=== PATIENT | male | born 1985 | race Caucasian/White ===

== ENCOUNTER 2020-12-06 11:50 | Outpatient (REF) | payer MEDICAID, SELFPAY ==
--- NOTE | ~2020-12-06 | XR_ITS ---
EXAMINATION: XR ANKLE, RIGHT CLINICAL INFORMATION: Pain COMPARISON: None TECHNIQUE: AP, lateral, and mortise views of the right ankle. FINDINGS: The bones and soft tissues are normal. No fracture. Alignment is anatomic. Joint spaces are maintained. No joint effusion. XR/XR ankle RT min 3V IMPRESSION: Normal right ankle.
== END 2020-12-06 11:51 | disposition home or self-care (01) ==
LOC: HO.XRAY 11:50
PROVIDERS: PCP Internal Medicine; Visit Provider Nurse Practitioner
DX: M25.571 Pain in right ankle and joints of right foot (principal)
CPT/HCPCS: 73610

== ENCOUNTER 2021-02-28 12:33 | Outpatient (REF) | payer MEDICAID, SELFPAY ==
--- NOTE | ~2021-02-28 | XR_ITS ---
EXAMINATION: XR KNEE, LEFT CLINICAL INFORMATION: Left posterior knee pain. COMPARISON: None TECHNIQUE: AP, lateral, tunnel and sunrise views of the left knee. FINDINGS: Bones and soft tissues are normal. No fracture or joint effusion. Alignment is anatomic. Joint spaces are well maintained. No abnormal soft tissue calcification. XR/XR knee LT 4V IMPRESSION: Normal left knee.
== END 2021-02-28 12:34 | disposition home or self-care (01) ==
LOC: HO.XRAY 12:33
PROVIDERS: Visit Provider General Practice
DX: M25.562 Pain in left knee (principal)
CPT/HCPCS: 73564

== ENCOUNTER 2021-07-21 09:27 | Emergency (ER) | payer MEDICAID, SELFPAY ==
[2021-07-21 09:42] VITALS: BP 140/84; PULSE 74; RESP 18; TEMP 36.4; O2SAT 100; BMI 26.1
--- NOTE | 2021-07-21 09:54 | ED_ITS ---
HPI - Eye Problem General Chief complaint: Eye Problems Stated complaint: eye issue Time Seen by Provider: 07/21/21 09:50 Source: patient Mode of arrival: ambulatory Limitations: no limitations History of Present Illness chief complaint: eye pain and eye redness Onset (ago): day(s) Onset description: gradual Duration: constant Location: right eye Eye Symptoms: redness and pain Place: home Mechanism: none Severity: moderate If Pain, Quality: aching Context: other (stye that he likely rubbed) Associated symptoms: other (area around eye became reddened) Treatments Prior to Arrival: none Related Data Previous Rx's Medication Instructions Recorded cephalexin 500 mg tablet 500 mg PO TID 7 Days #21 tab 07/21/21 Allergies Allergy/AdvReac Type Severity Reaction Status Date / Time No Known Allergies Allergy Verified 07/21/21 09:41 Review of Systems Review of Systems: Constitutional : No Fever, No Chills ENT/Mouth : No sore throat, No Rhinorrhea Eyes: pos Eye Pain, pos Swelling, pos Redness Cardiovascular : No Chest Pain, No SOB Respiratory : No Cough, No Sputum Gastrointestinal : No Nausea, No Vomiting, No Diarrhea, No abdominal Pain Genitourinary : No Dysuria, No Hematuria Musculoskeletal : No joint pain, No Myalgias, No Joint Swelling Skin : No Skin Lesions, positive skin rash Neuro : No Weakness, No Numbness, No Headache PMFSH Past Medical History Medical History (Updated 07/21/21 @ 09:59 by Constanza Hensley DO) No known health problems Social History Social History Advance Directives: No Advance Directives Information Provided: Yes Physical Exam Vital Signs: Vital Signs: Last Vital Signs Temp 97.5 F 07/21/21 09:42 Pulse 74 07/21/21 09:42 Resp 18 07/21/21 09:42 BP 140/84 H 07/21/21 09:42 Pulse Ox 100 07/21/21 09:42 BMI result Body Mass Index 26.1 Appearance: Alert. Oriented X3. No acute distress. Eyes: Pupils equal, round and reactive to light. R eye medial aspect internal stye noted but under eyelid is red and swollen no pain with EOMi ENT: Pharynx normal. Neck: Normal inspection. Neck supple. CVS: Normal heart rate and rhythm. Respiratory: No respiratory distress. Breath sounds normal. Abdomen: Atraumatic. Skin: Skin warm and dry. Normal skin color. Extremities: No lower extremity edema. Neuro: Oriented X 3. No motor deficit. No sensory deficit. MDM - Eye Problem MDM Narrative Medical decision making narrative: 35 yo male otherwise healthy no contact lens wear no vision changes stye but likely periorbital cellulitis no pain with orbital cellulitis - start on cephalexin and warm compresses. Discharge Plan Discharge Clinical Impression: Periorbital cellulitis, Hordeolum Patient Disposition: Home, Self-Care Instructions: Stjose eduardo (ED), Periorbital Cellulitis in Adults (ED) Additional Instructions: return to ED for any worsening symptoms or concerns warm compressed 4 times a day Prescriptions: New cephalexin 500 mg tablet 500 mg PO TID 7 Days Qty: 21 0RF Referrals: Edenilson Asencio [Physician] - 5 days (if not better) Print Language: Citizen Of [place]
== END 2021-07-21 10:04 | disposition home or self-care (01) ==
PROVIDERS: Emergency Provider Emergency Medicine; PCP Internal Medicine
DX: L03.213 Periorbital cellulitis (principal); H00.013 Hordeolum externum right eye, unspecified eyelid; Z79.899 Other long term (current) drug therapy
CPT/HCPCS: 99283

== ENCOUNTER 2023-10-13 08:48 | Outpatient (REF) | payer MEDICAID, SELFPAY ==
[2023-10-13 11:29] LABS: MANUAL DIFF FLAG NO
[2023-10-13 11:41] LABS: Basophils Percent Auto 0.4 % (0-2); Eosinophils Absolute Auto 0.1 X10*3/uL (0.0-0.4); Eosinophils Percent Auto 2.7 % (0-4); Hematocrit 46.1 % (42.0-52.0); Hemoglobin 15.3 g/dl (14.0-18.0); Imm Gran Abs Auto 0.01 X10*3/uL (0.00-0.03); Imm Gran Pct Auto 0.2 % (0.0-0.4); Lymphocytes Absolute Auto 1.9 X10*3/uL (1.2-4.9); Lymphocytes Percent Auto 38.4 % (20-40); Mean Corpuscular HGB Conc 33.2 g/dl (31.0-36.0); Mean Corpuscular Hemoglobin 29.9 pg (27.0-33.0); Mean Corpuscular Volume 90.2 fL (80.0-98.0); Mean Platelet Volume 9.6 fL (9.4-12.4); Monocytes Absolute Auto 0.3 X10*3/uL (0.1-1.2); Monocytes Percent Auto 6.6 % (2-11); Neutrophils Absolute Auto 2.5 x10*3/uL (2.0-8.3); Neutrophils Percent Auto 51.7 % (45-73); Platelet Count 330 X10*3/uL (160-400); Red Blood Count 5.11 X10*6/uL (4.60-5.80); Red Cell Distribution Width 13.3 % (11.0-16.0); White Blood Count 4.9 X10*3/uL (4.8-10.8)
[2023-10-13 11:56] LABS: Estimated Average Glucose 123 mg/dL; Hemoglobin A1c % 5.9 % (<6.0)
[2023-10-13 12:12] LABS: ~HepC Num1 0.17 S/CO (0.00-0.79); ~Hepatitis C Antibody Nonreactive (Nonreactive)
[2023-10-13 12:17] LABS: Alanine Aminotransferase 24 U/L (0-40); Albumin Level 4.6 g/dL (3.5-5.0); Alkaline Phosphatase 74 U/L (39-117); Anion Gap 13 (12-20); Aspartate Amino Transferase 21 U/L (5-37); Bilirubin Direct 0.1 mg/dL (0.0-0.5); Bilirubin Total 0.4 mg/dL (0.0-1.0); Blood Urea Nitrogen 16 mg/dL (9-16); Calcium 9.7 mg/dL (8.4-10.2); Carbon Dioxide 26 mmol/L (22-29); Chloride 107 mmol/L (96-108); Cholesterol 194 mg/dL (<200); Estimated Glomerular Filt Rate > 60; Glucose Random 94 mg/dL (60-115); HDL Cholesterol 46 mg/dL (>40); LDL Cholesterol Calculated 130 mg/dL (<100); Potassium 4.4 mmol/L (3.3-5.1); Sodium 142 mmol/L (135-145); Triglycerides 94 mg/dL (<150)
[2023-10-13 12:18] LABS: TSH reflex Free T4 1.75 uIU/mL (0.32-4.0)
[2023-10-17 13:34] LABS: HIV RNA PCR Qn Copies Not Detected Copies/mL; HIV RNA PCR Qn Log Copies Not Detected Log cps/mL
== END 2023-10-13 08:49 | disposition home or self-care (01) ==
LOC: HO.HHCL 08:48
PROVIDERS: Visit Provider Internal Medicine
DX: Z00.00 Encounter for general adult medical examination without abnormal findings (principal); R73.03 Prediabetes; E66.09 Other obesity due to excess calories; Z68.34 Body mass index [BMI] 34.0-34.9, adult
CPT/HCPCS: 36415; 80048; 80061; 80076; 83036; 84443; 85025; 86803; 87536; 87900

== ENCOUNTER 2024-06-22 08:56 | Outpatient (REF) | payer MEDICAID, SELFPAY ==
--- NOTE | ~2024-06-22 | XR_ITS ---
EXAMINATION: XR CHEST CLINICAL INFORMATION: chronic cough COMPARISON: None available. TECHNIQUE: 2 views of the chest were obtained. FINDINGS: The cardiac, hilar, and mediastinal contours are normal. The lungs are clear bilaterally. There is no pneumothorax or pleural effusion. There is no focal osseous or soft tissue abnormality. XR/XR chest 2V IMPRESSION: Normal chest. Electronically signed by: Erasmo Maurer MD 06/22/2024 10:02 AM [facility] [place]
--- OUTSIDE RECORDS SUMMARY | 2024-06-22 09:32 | XMS_ITS | Encounter Summary ---
Author Organization [employer] Address [address] [place] [address] Care Team Providers Care Bow Repairer Custom Name Role Phone Federica Power MD Primary Care Provide r Reason for Visit * Reason Comments Fever Cough Generalized Body Aches Encounter Details Date Type Department Care Team ([facility] st Contact Info) Description 06/21/2024 10:00 AM EST Office Visit [facility] [address], [place] [phone] Bautista Moreno MD [address], [place] [phone] Influenza A (Primary Dx); Chronic cough Social History Tobacco Use Types Packs/Day Years Used Date Smoking Tobacco: Never Passive Smoke Exposure: Never Smokeless Tobacco: Never Housing Stability Answer Date Recorded What is your housing situation today? I have patricia chacon 04/05/[address] you li ve. Do you have problems with any of the following? None of the above 04/05/2023 Food Insecurity Answer Date Recorded Within the past 12 months, y ou worried that your food would run out before you got money to buy more: Never True 04/05/2023 Within the past 12 months,th e food you bought just didn't last and you didn't have enough money to get more: Never True 10/2022 Transportation Answer Date Recorded In the past 12 months, has l ack of transportation kept you from medical appts, meetings, work or from getting things needed for daily living? No 04/05/2023 Utilities Answer Date Recorded In the past 12 months, has t he electric, gas, oil or water company threatened to shut off services in your home? No 04/05/2023 Sex and Gender Information Value Date Recorded Sex Assigned at Male 03/30/2022 10:36 AM EDT Legal Sex Male 10:36 AM EDT Gender Identity Male 03/30/2022 10:36 AM EDT Sexual Orientation Straight 03/30/2022 10 :36 AM EDT documented as of this encounter Last Filed Vital Signs Vital Sign Reading Time Taken Comments Blood Pressure 138/75 06/21/2024 10:00 AM EST Pulse 95 06/21/2024 10:00 AM EST Temperature 37.5 ??C (99.5 ??F) 06/21/2024 10:[address] Respiratory Rate 17 06/21/2024 10:00 AM EST Oxygen Saturation 95% 06/21/2024 10:00 AM EST Inhaled Oxygen Concentration - - Weight 75.1 kg (165 lb 9.6 oz) 06/21/2024 10:00 AM EST Height - - Body Mass Index 31.45 03/31/2024 8:54 AM EDT documented in this encounter Progress Notes * Bautista Moreno MD - 06/21/2024 10:00 AM EST Subjective Patient ID: Samuel Sifuentes is a 38 y.o. male. HPI 4 days ago Samuel had onset of byauq=713.4, nausea without vomiting, cough, nasal congestion, diarrhea 1-2x/day, last time was yesterday, dry cough. Taking ibuprofen with some relief. States had asthma as child and has had intermittent wheezing with SOB since cold weather started inthe fall. Lives with and 12 yo daughter. 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 Never smoked. Patient Active Problem List Diagnosis Periorbital cellulitis of right eye Orbital cellulitis Migraine without aura, not refractory Insomnia Chronic cough Encounter for preventative adult health care examination Dermatitis Laryngitis Acute URI Prediabetes Class 1 obesity due to excess calories without serious comorbidity with body mass index (BMI) of 34.0 to 34.9 in adult The following portions of the chart were reviewed this encounter and updated as appropriate: Tobacco Allergies Meds Problems Med Hx Surg Hx Fam Hx Review of Systems Constitutional: Positive for fever. Respiratory: Positive for cough, shortness of breath and wheezing. Cardiovascular: Negative for chest pain. Gastrointestinal: Positive for diarrhea and nausea. Negative for abdominal pain. Skin: Negative for rash. Neurological: Negative for headaches. Objective Physical Exam Constitutional: Appearance: Normal appearance. HENT: Right Ear: Tympanic membrane, ear canal and external ear normal. Left Ear: Tympanic membrane, ear canal and external ear normal. Nose: Nose normal. Mouth/Throat: Mouth: Mucous membranes are moist. Pharynx: Oropharynx is clear. Eyes: Conjunctiva/sclera: Conjunctivae normal. Pupils: Pupils are equal, round, and reactive to light. Cardiovascular: Rate and Rhythm: Normal rate and regular rhythm. Heart sounds: No murmur heard. Pulmonary: Effort: Pulmonary effort is normal. Breath sounds: Normal breath sounds. Musculoskeletal: General: Normal range of motion. Cervical back: No tenderness. Skin: Findings: No rash. Neurological: Mental Status: He is alert. Gait: Gait is intact. Psychiatric: Mood and Affect: Mood normal. Behavior: Behavior normal. Procedures Assessment/Plan Diagnoses and all orders for this visit: Influenza A + rapid Flu A test. Neg rapid Covid test. Has had sx for 5 days, so Tamiflu not prescribed. Prescribed ibuprofen, acetaminophen, Flonase. Discussed Flu precautions. Rtc if not improving. - POCT Rapid COVID Ag - Influenza A (ID NOW Rapid Molecular) - Influenza B (ID NOW Rapid Molecular) Chronic cough Related to h/o asthma. Prescribed albuterol HFA with spacer, prednisone. CXR ordered. Will call pt with report. Rtc if not improving. - XR Chest 2 Views; Future Other orders - acetaminophen (Tylenol) 500 MG tablet; Take 2 tablets (1,000 mg) by mouth every 6 (six) hours if needed for moderate pain or fever for up to 25 doses. - ibuprofen 400 MG tablet; Take 1 tablet (400 mg) by mouth every 6 (six) hours if needed for moderate pain or fever for up to 30 doses. - albuterol 108 (90 Base) MCG/ACT inhaler; Inhale 2 puffs every 4 (four) hours if needed for wheezing or shortness of breath. - Spacer/Aero-Holding Chambers (OptiChamber Jazmyn) misc; 1 each every 4 (four) hours if needed (asthma). - predniSONE (Deltasone) 20 MG tablet; Take 2 tablets (40 mg) by mouth Once per day for 5 days. - fluticasone (Flonase) 50 MCG/ACT nasal spray; Administer 1 spray into each nostril Once per day. - SUMAtriptan (Imitrex) 50 MG tablet; Take 1 tablet (50 mg) by mouth 1 (one) time if needed for migraine. May repeat dose once in 2 hours if no relief. Do not exceed 2 doses in 24 hours. - udytgvhkod-xvnvqxwxaagld-atyyhlks 50-325-40 MG tablet; TAKE 1 TO 2 TABLETS BY MOUTH EVERY 4 HOURSAS NEEDED FOR MIGRAINE. DO NOT EXCEED 6 TABLETS IN 24 HOURS documented in this encounter Plan of Treatment Scheduled Orders Name Type Priority Associated Diagnoses Orde r Schedule XR Chest 2 Views Imaging Routine Chronic cough Expected: 06/21/2024, Expires: 06/21/2025 documented as of this encounter Procedures Procedure Name Priority Date/Time Associated Diagnosis Comments POCT INFLUENZA B (ID NOW RAPID MOLECULAR) Routine 06/21/2024 10:13 AM EST Influenza A POCT INFLUENZA A (ID NOW RAPID MOLECULAR) Routine 06/21/2024 10:13 AM EST Influenza A POCT RAPID COVID ANTIGEN Routine 06/21/2024 10:13 AM EST Influenza A documented in this encounter Results * Influenza B (ID NOW Rapid Molecular) (06/21/2024 10:13 AM EST) Pathologist [facility] Influenza B Negative Negative, Indeterminate [facility] Swab 06/21/2024 10:1 3 AM EST us Bautista Moreno MD POINT OF CARE TEST ENTER/EDIT OR DERABLES Final Result [facility] [address] [place] [phone] * (ABNORMAL) Influenza A (ID NOW Rapid Molecular) (06/21/2024 10:13 AM EST) [facility] Influenza A Positive( A) Negative, Indeterminate [facility] Swab 06/21/2024 10:1 3 AM EST us Bautista Moreno MD POINT OF CARE TEST ENTER/EDIT OR DERABLES Final Result Performing Organization Address [facility] Co de Phone Number [facility] [address] [place] [address] [phone] * POCT Rapid COVID Ag (06/21/2024 10:13 AM EST) Rapid COVID Ag Negative [facility] Swab 06/21/2024 10:1 3 AM EST us Bautista Moreno MD POINT OF CARE TEST ENTER/EDIT OR DERABLES Final Result Performing Organization Address [facility] de Phone Number [facility] [address] [place] [address] [phone] documented in this encounter Visit Diagnoses Diagnosis Influenza A- Primary Influenza with other respiratory manifestations Chronic cough Cough documented in this encounter Care Teams Bow Repairer Custom Relationship Specialty Start Date End Date Federiac Power MD [address] [place] [phone] PCP - General Family Medicine 03/13/19 documented as of this encounter
--- OUTSIDE RECORDS SUMMARY | 2024-06-22 09:32 | XMS_ITS | Encounter Summary ---
Author Organization [employer] Address [address] [place] [address] [address] [place] [address] Care Team Providers Care Research Chief Engineer Name Role Phone Federica Power MD Primary Care Provide r Encounter Details Date Type Department Care Team ([facility] st Contact Info) Description 02/24/2023 Orders Only [facility] [address] [place] [address] Beverly Barton LPN Social History Tobacco Use Types Packs/Day Years Used Date Smoking Tobacco: Never Smokeless Tobacco: Never Sex and Gender Information Value Date Recorded Sex Assigned at Male 03/30/2022 10:36 AM EDT Legal Sex Male 10:36 AM EDT Gender Identity Male 03/30/2022 10:36 AM EDT Sexual Orientation Straight 03/30/2022 10 :36 AM EDT documented as of this encounter Plan of Treatment Not on file documented as of this encounter Visit Diagnoses Not on filedocumented in this encounter Care Teams Research Chief Engineer Relationship Specialty Start Date End Date Federica Power MD [address] [place] [phone] PCP - General Family Medicine 03/13/19 documented as of this encounter
== END 2024-06-22 08:57 | disposition home or self-care (01) ==
LOC: HO.HHCX 08:56
PROVIDERS: Visit Provider Emergency Medicine
DX: R05.3 Chronic cough (principal)
CPT/HCPCS: 71046

== ENCOUNTER → 2024-06-22 08:56 | Outpatient (BNV) | payer MEDICAID, SELFPAY | PROVIDERS: Visit Provider Radiology Diagnostic Radiology | DX: R05.9 Cough, unspecified (principal) | CPT/HCPCS: 71046 ==

== ENCOUNTER 2024-10-20 15:24 | Outpatient (REF) | payer MEDICAID, SELFPAY ==
--- OUTSIDE RECORDS SUMMARY | 2024-10-20 15:27 | XMS_ITS | Clinical Summary ---
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 30 tablet 3 Active triamcinolone (Kenalog) 0.1 % creamIndication s:Dermatitis Apply topically if needed in the morning and at bedtime (pain and swelling). 30 g 2 3 Active cetirizine (ZyrTEC) 10 MG tablet Take 1 tablet (10 mg) by mouth Once per day. 30 tablet 4 Active azithromycin (Zithromax) 250 MG tablet Take 2 tabs day and then 1 tab daily 6 tablet 4 Active Dextromethorpha n-guaiFENesin (Mucinex DM) 30-600 MG tablet sustained-relea se 12 hour Use 1 tab TID 28 tablet 4 Active acetaminophen (Tylenol) 500 MG tablet Take 2 tablets (1,000 mg) by mouth every 6 (six) hours if needed for moderate pain or fever for up to 25 doses. 50 tablet 5 Active ibuprofen 400 MG tablet Take 1 tablet (400 mg) by mouth every 6 (six) hours if needed for moderate pain or fever for up to 30 doses. 30 tablet 5 Active albuterol 108 (90 Base) MCG/ACT inhaler Inhale 2 puffs every 4 (four) hours if needed for wheezing or shortness of breath. 18 g 2 5 06/21/19 26 Active Spacer/Aero-Hol ding Chambers (OptiChamber Jazmyn) misc 1 each every 4 (four) hours if needed (asthma). 1 each 5 Active fluticasone (Flonase) 50 MCG/ACT nasal spray Administer 1 spray into each nostril Once per day. 16 g 5 Active SUMAtriptan (Imitrex) 50 MG tablet Take 1 tablet (50 mg) by mouth 1 (one) time if needed for migraine. May repeat dose once in 2 hours if no relief. Do not exceed 2 doses in 24 hours. 9 tablet 1 5 Active butalbital-acet aminophen-caffe ine 50-325-40 MG tablet TAKE 1 TO 2 TABLETS BY MOUTH EVERY 4 HOURS NEEDED FOR MIGRAINE. DO NOT EXCEED 6 TABLETS IN 24 HOURS 10 tablet 3 5 Active Active Problems Problem Noted Date Diagnosed Date Palpitations 10/20/2024 Class 1 obesity due to exces s calories with serious comorbidity and body mass index (BMI) of 31.0 to 31.9 in adult 10/20/2024 Prediabetes 10/08/2023 Assessment & Plan (10/08/2023 3:25 PM EDT): Today extensive discussion was done about life style modifications I advise healthy diet (low calorie) and cardiovascular exercise Dermatitis 10/07/2022 Assessment & Plan (10/07/2022 10:23 AM EDT): If lesion/rash liang not improve with treatment call back for possible dermatology referral Migraine without aura, not refractory 09/30/2022 Insomnia 09/30/2022 Chronic cough 09/30/2022 Resolved Problems Problem Noted Date Diagnosed Date Resolved Date Class 1 obesity due to exces s calories without serious comorbidity with body mass index (BMI) of 34.0 to 34.9 in adult 10/08/2023 Laryngitis 09/20/2023 10/20/2024 Assessment & Plan (09/20/2023 11:58 AM EDT): Advised to increase PO fluids intake Use Flonase daily + tylenol Advised to take vapor showers, throat lozenges Advised to rest voice, he'll be out of work x 2d. Wear face mask outdoors Acute URI 09/20/2023 10/20/2024 Assessment & Plan (09/20/2023 11:58 AM EDT): Resolving Use tylenol prn + Flonase x 1w Encounter for preventative a dult health care examination 10/07/2022 10/20/2024 Assessment & Plan (10/08/2023 3:25 PM EDT): See HPI Assessment & Plan (10/07/2022 10:22 AM EDT): Diet and exercise counseling done Blood work ordered RTC 1 year Periorbital cellulitis of right eye 09/30/2022 10/20/2024 Orbital cellulitis 09/30/2022 Encounters Date Type Department Care Team Description 10/20/2024 2:45 PM EDT Office Visit [facility] [address] [place] [phone] Federica Power MD Palpitations (Primary Dx); Prediabetes; Class 1 obesity due to excess calories with serious comorbidity and body mass index (BMI) of 31.0 to 31.9 in adult 10/20/2024 Travel 10/19/2024 Travel 10/19/2024 Telephone [facility] [address] [place] [phone] Federica Power MD chart prep 10/12/2024 Patient Outreach [facility] [address] [place] [address] [phone] Federica Power MD Pre-visit Planning ((Unable to reach for PVP screening and or LVM)) from Last 3 Months Social History Tobacco Use Types Packs/Day Years Used Date Smoking Tobacco: Never Passive Smoke Exposure: Never Smokeless Tobacco: Never Tobacco Cessation:Counseling Given: Not Answered Housing Stability Answer Date Recorded What is [...] Orientation Straight 03/30/2022 10 :36 AM EDT Last Filed Vital Signs Vital Sign Reading Time Taken Comments Blood Pressure 118/82 10/20/2024 3:11 PM EDT Pulse 87 10/20/2024 3:11 PM EDT Temperature 36.5 ??C (97.7 ??F) 10/20/2024 2:54 PM ED T Respiratory Rate 12 10/20/2024 2:54 PM EDT Oxygen Saturation 95% 06/21/2024 10:00 AM EST Inhaled Oxygen Concentration - - Weight 76.3 kg (168 lb 4 oz) 10/20/2024 2:54 PM EDT Height 154.5 cm (5' 0.84 ) 10/20/2024 2:54 PM ED T Body Mass Index 31.96 10/20/2024 2:54 PM EDT Plan of Treatment Health Maintenance Due Date Last Done Comments Depression Screening 1984 Alcohol/Substance Use Screening 1996 Family Planning (PISQ) 12/23/1999 DTaP/Tdap/Td Vaccines (1 - Tdap) 12/23/2003 Hepatitis B Vaccines (1 of 3 - 19+ 3-dose series) 12/23/2003 SDOH Screening 10/08/2023 10/07/2022 Diabetes: Hemoglobin A1C 10/09/2023 10/08/2022 COVID-19 Vaccine (3 - 2023-2 5 season) 2024 10/18/2020, 09/20/2020 Influenza Vaccine (#1) 2024 Disability Screening 10/20/2025 10/20/2024 Tobacco Screening 10/20/2025 10/20/2024 Lipid Panel 10/09/2027 10/08/2022 Zoster Vaccines (1 of 2) 2034 RSV Patients and Patients Aged 60 years or older (1 - 1-dose 75+ series) 12/23/2059 HIV Screening Completed 10/08/2022 Hepatitis C Screening Completed 10/08/2022 HIB Vaccines Aged Out No longer eligi ble based on patient's age to complete this topic HPV Vaccines Aged Out No longer eligi ble based on patient's age to complete this topic Hepatitis A Vaccines Aged Out No long er eligible based on patient's age to complete this topic IPV Vaccines Aged Out No longer eligi ble based on patient's age to complete this topic Meningococcal B Vaccine Aged Out No l onger eligible based on patient's age to complete this topic Meningococcal Vaccine Aged Out No tk cony eligible based on patient's age to complete this topic Pneumococcal Vaccine: Pediatrics (0 to 5 Years) and At-Risk Patients (6 to 49) Years) Aged Out No longer eligible b ased on patient's age to complete this topic RSV under 20 months Aged Out No longe r eligible based on patient's age to complete this topic Rotavirus Vaccines Aged Out No longer eligible based on patient's age to complete this topic Procedures Procedure Name Priority Date/Time Associated Diagnosis Comments HEPATITIS C AB W/REFL TO HCV RNA, QN, PCR Routine 10/08/2022 3:03 PM EDT Encounter for preventative adult health care examination HIV 1/2 ANTIGEN/ANTIBODY, FOURTH GENERATION W/RFL Routine 10/08/2022 3:03 PM EDT Encounter for preventative adult health care examination HEMOGLOBIN A1C Routine 10/08/2022 3:03 PM EDT Encounter for preventative adult health care examination LIPID PANEL, STANDARD Routine 10/08/2022 3:03 PM EDT Encounter for preventative adult health care examination from Last 3 Months or Most Recently Relevant to Health Maintenance Results * Hepatitis C Antibody with Reflex to HCV, RNA, Quantitative, Real-Time PCR (10/08/2022 3:03 PM EDT) Hepatitis C Antibody NON-REACT TRACY NON-REACT TRACY [facility] Index 0.16 <1.00 [facility] [place] [facility] Comment: HCV antibody was non-reactive. There is no laboratory evidence of HCV infection. In most cases, no further action is required. However, if recent HCV exposure is suspected, a test for HCV RNA (test code 82800) is suggested. For additional information please refer to http://education.[employer]/faq/RXQ28p5 (This link is being provided for informational/ educational purposes only.) Blood Venous blood specimen / Unknown 10/08/2022 3:03 PM EDT 10/08/2022 3:04 PM EDT Federica Aguilar MD LAB BLOOD ORDERABLES Final Result [facility] [address], [place] [address] [facility] [address] [place] [phone] * HIV-1/2 Antigen and Antibodies, Fourth Generation, with Reflexes (10/08/2022 3:03 PM EDT) HIV Antigen/Antibody, 4th Generation NON-REAC TIVE NON-REAC TIVE [facility] [place] [facility] Comment: HIV-1 antigen and HIV-1/HIV-2 antibodies were not detected. There is no laboratory evidence of HIV infection. PLEASE NOTE: This information has been disclosed to you from records whose confidentiality may be protected by state law. ??If your state requires such protection, then the state law prohibits you from making any further disclosure of the information without the specific written consent of the person to whom it pertains, or as otherwise permitted by law. A general authorization for the release of medical or other information is NOT sufficient for this purpose. ?? For additional information please refer to http://education.[employer]/faq/AKY526 (This link is being provided for informational/ educational purposes only.) The performance of this assay has not been clinically validated in patients less than 2 years old. Blood Venous blood specimen / Unknown 10/08/2022 3:03 PM EDT 10/08/2022 3:04 PM EDT Federica Aguilar MD LAB BLOOD ORDERABLES Final Result Performing Organization Address [facility] Co de Phone Number [facility] [address] [place] [phone] [facility] [place] [facility] [address] [place] [phone] * (ABNORMAL) Hemoglobin A1c (10/08/2022 3:03 PM EDT) [facility] Hemoglobin A1c 5.8(H) <5.7 % of total Hgb [facility] [place] [facility] Comment: For someone without known diabetes, a hemoglobin A1c value between 5.7% and 6.4% is consistent with prediabetes and should be confirmed with a follow-up test. For someone with known diabetes, a value <7% indicates that their diabetes is well controlled. A1c targets should be individualized based on duration of diabetes, age, comorbid conditions, and other considerations. This assay result is consistent with an increased risk of diabetes. Currently, no consensus exists regarding use of hemoglobin A1c for diagnosis of diabetes for children. Blood Venous blood specimen / Unknown 10/08/2022 3:03 PM EDT 10/08/2022 3:04 PM EDT Federica Aguilar MD LAB BLOOD ORDERABLES Final Result Performing Organization Address [facility] Co de Phone Number [address] [phone] [facility] [place] [facility] [address] [place] [phone] * (ABNORMAL) Lipid Panel, Standard (10/08/2022 3:03 PM EDT) Cholesterol, Total 197 <200 mg/dL [facility] HDL Cholesterol 47 > OR = 40 mg/dL [facility] Triglycerides 152(H) <150 mg/dL [facility] [employer] LDL Cholesterol 123(H) mg/dL (calc) [facility] [place] [facility] Comment: Reference range: <100 Desirable range <100 mg/dL for primary prevention; ?? <70 mg/dL for patients with CHD or diabetic patients with > or = 2 CHD risk factors. LDL-C is now calculated using the Jocelin calculation, which is a validated novel method providing better accuracy than the Friedewald equation in the estimation of LDL-C. Howard MEJIA et al. TRAY. 2013;310(19): 1138-8448 (http://education.Well[employer]/faq/VSR090) Chol/HDLC Ratio 4.2 <5.0 (calc) [facility] Non-HDL Cholesterol 150(H) <130 mg/dL (calc) [facility] [place] [facility] Comment: For patients with diabetes plus 1 major ASCVD risk factor, treating to a non-HDL-C goal of <100 mg/dL (LDL-C of <70 mg/dL) is considered a therapeutic option. Blood Venous blood specimen / Unknown 10/08/2022 3:03 PM EDT 10/08/2022 3:04 PM EDT us Federica Aguilar MD LAB BLOOD ORDERABLES Final Result [facility] [address] [place] [address] [facility] [address] [place] [phone] from Last 3 Months or Most Recently Relevant to Health Maintenance Insurance [facility] C3 Care Teams Oceanography Professor Relationship Specialty Start Date End Date Federica Power MD [address] [place] [address] PCP - General Family Medicine 03/13/19
[2024-10-20 16:31] LABS: MANUAL DIFF FLAG NO
[2024-10-20 16:38] LABS: Basophils Percent Auto 0.4 % (0-2); Eosinophils Absolute Auto 0.1 X10*3/uL (0.0-0.4); Eosinophils Percent Auto 1.8 % (0-4); Hematocrit 46.4 % (42.0-52.0); Hemoglobin 15.9 g/dl (14.0-18.0); Imm Gran Abs Auto 0.02 X10*3/uL (0.00-0.03); Imm Gran Pct Auto 0.3 % (0.0-0.4); Lymphocytes Absolute Auto 2.4 X10*3/uL (1.2-4.9); Lymphocytes Percent Auto 36.4 % (20-40); Mean Corpuscular HGB Conc 34.3 g/dl (31.0-36.0); Mean Corpuscular Hemoglobin 29.6 pg (27.0-33.0); Mean Corpuscular Volume 86.2 fL (80.0-98.0); Mean Platelet Volume 9.2 fL (9.4-12.4); Monocytes Absolute Auto 0.3 X10*3/uL (0.1-1.2); Monocytes Percent Auto 4.9 % (2-11); Neutrophils Absolute Auto 3.8 x10*3/uL (2.0-8.3); Neutrophils Percent Auto 56.2 % (45-73); Platelet Count 353 X10*3/uL (160-400); Red Blood Count 5.38 X10*6/uL (4.60-5.80); Red Cell Distribution Width 13.2 % (11.0-16.0); White Blood Count 6.7 X10*3/uL (4.8-10.8)
[2024-10-20 17:05] LABS: Estimated Average Glucose 120 mg/dL; Hemoglobin A1C 163.2638 umol/L; Hemoglobin A1c % 5.8 % (<6.0); Total Hemoglobin (HGBA1C) 4148.7524 umol/L
[2024-10-20 17:21] LABS: Alanine Aminotransferase 27 U/L (0-40); Albumin Level 4.9 g/dL (3.5-5.0); Alkaline Phosphatase 83 U/L (39-117); Anion Gap 15 (12-20); Aspartate Amino Transferase 38 U/L (5-37); Bilirubin Total 0.4 mg/dL (0.0-1.0); Blood Urea Nitrogen 12 mg/dL (9-16); Carbon Dioxide 29 mmol/L (22-29); Chloride 104 mmol/L (96-108); Cholesterol 213 mg/dL (<200); Estimated Glomerular Filt Rate > 60; Glucose Random 123 mg/dL (60-115); HDL Cholesterol 48 mg/dL (>40); LDL Cholesterol Calculated 132 mg/dL (<100); Potassium 4.5 mmol/L (3.3-5.1); Sodium 143 mmol/L (135-145); Total Protein 8.5 g/dL (6.5-8.0); Triglycerides 167 mg/dL (<150)
[2024-10-20 17:26] LABS: TSH reflex Free T4 1.86 uIU/mL (0.32-4.0); Vitamin D 25-OH Total 21.9 ng/mL (>30)
[2024-10-23 08:10] LABS: HIV AB/AG Nonreactive (Nonreactive); HIV Num 1 0.05 S/CO (0.00-0.99); ~Hepatitis C Antibody Nonreactive (Nonreactive)
== END 2024-10-20 15:25 | disposition home or self-care (01) ==
LOC: HO.HHCL 15:24
PROVIDERS: Visit Provider Internal Medicine
DX: R73.03 Prediabetes (principal); E66.811 Obesity, class 1; E66.09 Other obesity due to excess calories; Z68.31 Body mass index [BMI] 31.0-31.9, adult; R00.2 Palpitations
CPT/HCPCS: 36415; 80053; 80061; 82306; 83036; 84443; 85025; 86803; 87389